=== PATIENT | male | born 1985 | race Caucasian/White ===

== ENCOUNTER → 2017-02-02 | Outpatient (CLI) | payer BC ==
[2017-02-02 12:05] LABS: BASOPHILS % 0.3 % (0.0-1.0); EOSINOPHILS # (AUTO) 0.1 (0.0-0.4); EOSINOPHILS % 1.5 % (0.0-6.0); HEMATOCRIT 41.5 % (38.2-49.6); HEMOGLOBIN 14.1 g/dL (14.0-18.0); LYMPHOCYTES # (AUTO) 1.6 (1.0-3.2); LYMPHOCYTES % 18.8 % (18.0-39.1); MEAN CORPUSCULAR HEMOGLOBIN 31.5 pg (28-32); MEAN CORPUSCULAR VOLUME 92.6 fL (81-99); MONOCYTES # (AUTO) 0.9 (0.2-0.8); MONOCYTES % 10.1 % (4.4-11.3); NEUTROPHILS % 68.5 % (38.7-80.0); PLATELET COUNT 287 x10e3/uL (140-360); RED BLOOD COUNT 4.48 x10e6/uL (4.3-5.7)
[2017-02-02 12:38] LABS: ERYTHROCYTE SEDIMENTATION RATE 60 mm/hr (0-13)
== END ==
LOC: LAB 11:48
PROVIDERS: ATTEND Podiatrist Foot Surgery
DX: G57.50 Tarsal tunnel syndrome, unspecified lower limb (principal)
CPT/HCPCS: 36415; 84550; 85025; 85651; 86140

== ENCOUNTER 2017-07-18 14:56 | Emergency (ER) | payer BC ==
[~2017-07-18] VITALS: Ht 175.3 cm; Wt 90.7 kg
--- OUTSIDE RECORDS SUMMARY | 2017-07-18 14:59 | XMS REPORT ---
Author Author [facility] Address Unknown Phone Unavailable Care Team Providers Care Build And Release Manager Name Role Phone LEVAR CONNELL Unavailable Unavailable Problems This patient has no known problems. Allergies, Adverse Reactions, Alerts This patient has no known allergies or adverse reactions. Medications This patient has no known medications. Results Test Description Test Time Test Comments Text Results Atomic Results Result Comments CT FOOT LEFT WO [place] [address] Patient Name: GERMAN NOYOLA MR #: [id number] : 1985 Age/Sex: 31/M Req #: [id number] Adm Physician: Ordered by: LVEAR CONNELL DPM Report #: [id number] Location: CT Room/Bed: Procedure: [id number] CT/CT FOOT LEFT WO Exam Date: 02/09/17 Exam Time: 1712 REPORT STATUS: Signed Exam: Left footCT without contrast. History: Foot pain. Tarsal tunnel syndrome. Decreased range of motion. Pain not responding to conservative management Comparison:None Technique: Utilizing a 64-slice multidetector CT, axial imaging was performed through the left foot without IV contrast. Multiplanar reformation was performed. Findings: Postsurgical changes are seen at the anterior lateral aspect of the calcaneus. The metallic plate and screws are intact without evidence of failure or loosening. There is diffuse osteopenia. Scattered degenerative changes are seen. No acute fracture, dislocation or evidence of avascular necrosis. No talar dome osteochondral lesion is seen. The subtalar joints are intact. There is mild superficial soft tissue edema about the ankle medially and laterally. There is what appears to be a mild amount of swelling surrounding the distal posterior tibial tendon best seen on series 3 image 22. There is a slight flat foot deformity. Impression: Postsurgical changes are seen at the anterior lateral aspect of the calcaneus. The metallic plate and screws are intact without evidence of failure or loosening. There is what appears to be a mild amount of swelling surrounding the distal posterior tibial tendon. There is a slight flat foot deformity. No abnormal masses seen in the region of the tarsal tunnel. Signed by: Dr. Davis Bustamante M.D. on 02/10/2017 2:20 PM Dictated By: DAVIS BUSTAMANTE MD, MD [id number] Transcribed By: OMAR on 02/10/17 1422 COPY TO: LEVAR CONNELL DPM
[2017-07-18] MEDS ORDERED: HYDROCODONE/APAP 5MG-325MG TAB PO ONE (15:45)
[2017-07-18] MEDS ORDERED: BUPIVACAINE HCL 0.5% 10ML MPF VIAL INJ ONE (16:00)
[2017-07-18] MEDS ORDERED: TRIAMCINOLONE ACET 40 MG/ML VIAL INJ ONE (16:00)
--- NOTE | 2017-07-18 16:37 | Diagnostic Imaging Report ---
Right complete knee. CPT CODE: 53630. INDICATION: Swelling, no injury COMPARISON: None FINDINGS: No fracture, dislocation, focal osseous lesion. The visualized joint spaces of the knee are preserved. Moderate sized joint effusion. IMPRESSION: Moderate-sized joint effusion. No osseous abnormalities. Signed by: Dr. Makayla Ritter MD on 07/18/2017 4:33 PM
[2017-07-18 17:22] VITALS: BP 136/89
== END 2017-07-18 17:20 | disposition home or self-care (01) ==
LOC: ER 14:56
DX: M25.561 Pain in right knee (principal); M25.461 Effusion, right knee; M10.061 Idiopathic gout, right knee
CPT/HCPCS: 20610; 73562; 87070; 87205; 99284; J3301

== ENCOUNTER → 2017-08-27 | Outpatient (CLI) | payer BC ==
--- NOTE | 2017-08-27 09:02 | Diagnostic Imaging Report ---
TECHNIQUE: Magnetic resonance imaging of the RIGHT KNEE was performed WITHOUT injected contrast. HISTORY: Right knee pain COMPARISON: None available. FINDINGS: LIGAMENTS AND TENDONS: ACL: Intact PCL: Intact Collateral ligaments: Intact Iliotibial band: Unremarkable Popliteal tendon: Edema within the muscle belly with tendinosis of the origin and interstitial tearing axial image 19 and coronal image 15. Subenthesial edema of the lateral femoral condyle.. Extensor mechanism: Intact JOINT: Menisci: Medial: Intact Lateral: Degeneration of the anterior horn. Articular Cartilage: Medial Compartment: No focal defect. Lateral Compartment: No focal defect. Patellofemoral Compartment: Focal fissuring of the central trochlea. Joint Fluid: Moderate joint effusion. BONE: No focal or infiltrative bone marrow replacing abnormality. No acute fracture. SOFT TISSUES: Otherwise, unremarkable. IMPRESSION: Popliteus origin tendinopathy with interstitial tearing and subenthesial edema of the lateral femoral condyle. Joint effusion. No acute ligamentous or meniscal tear. Signed by: Dr. Roman Frye M.D. on 08/27/2017 8:59 AM
== END ==
LOC: MRI 07:35
PROVIDERS: ATTEND Specialist
DX: M23.91 Unspecified internal derangement of right knee (principal)

== ENCOUNTER 2017-09-14 17:00 | Outpatient (RCR) | payer BC | END 2017-09-28 | LOC: PT 17:00 | PROVIDERS: ATTEND Specialist | DX: M23.91 Unspecified internal derangement of right knee (principal); M25.561 Pain in right knee; M25.461 Effusion, right knee; M10.061 Idiopathic gout, right knee; M62.81 Muscle weakness (generalized) ==

== ENCOUNTER → 2018-12-27 | Outpatient (CLI) | payer BC ==
--- NOTE | 2018-12-27 22:16 | Diagnostic Imaging Report ---
Lumbar Spine Radiographs: 5 views including bilateral oblique views HISTORY: Pain. COMPARISON: None available. DISCUSSION: Some of the osseous structures are partially obscured by stool and bowel gas. There are five non-rib bearing lumbar vertebral bodies. The alignment of the spine is within normal limits. No displaced fracture or compression deformity is identified. Disc Spaces: The disc spaces are well maintained. Facets: Mild sclerotic facet arthropathy L5-S1. IMPRESSION: No acute radiographic abnormality. Mild degenerative changes at L5-S1. Signed by: Sandeep Greco DO on 12/27/2018 10:12 PM
== END ==
LOC: RAD 18:57
PROVIDERS: ATTEND Family Medicine
DX: M54.5 Low back pain (principal)
CPT/HCPCS: 72110

== ENCOUNTER → 2018-12-29 | Outpatient (CLI) | payer BC ==
--- NOTE | 2018-12-29 09:57 | Diagnostic Imaging Report ---
Examination: MRI SPINE LUMBAR WO CONTRAST History: Low back pain, nonradiating. Comparison studies: Lumbar spine x-ray performed December 27, 2018. Technique: Sagittal, coronal and axial T2 , sagittal T1 and STIR; axial spin density oblique. Findings: Number of lumbar vertebral bodies: Five. Alignment: Normal lordosis. No scoliosis. Soft tissues: No T2 hyperintense inflammatory changes. Posterior paraspinal soft tissues and muscles: No abnormality. Lower thoracic cord: Normal in signal and morphology. The tip of the conus is at L1. Cauda equina: No masses. No arachnoiditis. Vertebrae: No fractures, infection or neoplasm. Degenerative changes: L1-L2 through L4-L5: No abnormalities. L5-S1: Small central disc protrusion and mild bilateral facet arthropathy. No foraminal or canal stenosis. IMPRESSION: Small central disc protrusion and mild bilateral facet arthropathy at L5-S1 without canal or foraminal stenosis. Signed by: Dr. Fallon Stiles M.D. on 12/29/2018 9:53 AM
== END ==
LOC: MRI 08:10
PROVIDERS: ATTEND Family Medicine
DX: M54.5 Low back pain (principal)
CPT/HCPCS: 72148

== ENCOUNTER 2020-10-16 07:35 | Emergency (ER) | payer BC, OTHER ==
[~2020-10-16] VITALS: Ht 175.3 cm; Wt 90.7 kg
[2020-10-16] MEDS ORDERED: KETOROLAC TROMETHAMINE 30 MG/ML VIAL IV STA (07:42)
[2020-10-16] MEDS ORDERED: ACETAMINOPHEN 325 MG TAB PO ONE (07:45)
[2020-10-16] MEDS ORDERED: SODIUM CHLORIDE 0.9% 1000ML 1,000 ML IV SCH (07:45)
[2020-10-16] MEDS ORDERED: CASIRIVIMAB/IMDEVIMAB 10 ML in SODIUM CHLORIDE 0.9% 100 ML IV ONE (10:00)
[2020-10-16] MEDS ORDERED: LACTATED RINGER'S 1,000 ML INJ ONE (10:00)
[2020-10-16] MEDS ORDERED: MUCINEX DM ER1 EACH PO (10:57)
== END 2020-10-16 10:59 | disposition home or self-care (01) ==
LOC: ER 08:17
DX: R50.9 Fever, unspecified (principal); R05 Cough; R06.00 Dyspnea, unspecified; U07.1 COVID-19
CPT/HCPCS: 99284; J1885; J7030